=== PATIENT | female | born 1955 | race Caucasian/White ===

== ENCOUNTER 2019-04-02 07:32 | Day surgery (SDC) | payer OTHER, MEDICARE ==
[~2019-04-02 07:32] MED LIST: Lactated Ringers 1,000 ML IV SCH
[2019-04-02] MEDS ORDERED: Lidocaine 2% 5 ML SDV ONE (07:37)
[2019-04-02] MEDS ORDERED: Propofol 200 MG/20 ML SDV ONE (07:37)
[2019-04-02] MEDS ORDERED: fentaNYL 100 MCG/2 ML SDV ONE (07:37)
[2019-04-02] MEDS ORDERED: Levofloxacin/Dextrose 5%-Water 750 MG in Premix Bag 1 BAG IV STA (07:59)
--- NOTE | 2019-04-02 08:07 | PCM.PREANE ---
Preanesthetic Assessment - Anesthesia/Transfusion/Family Hx Anesthesia History: Prior Anesthesia Without Reaction Family History of Anesthesia Reaction: No Transfusion History: No Prior Transfusion(s) Intubation History: Unknown - Review of Systems General: No Symptoms Pulmonary: No Symptoms Cardiovascular: No Symptoms Gastrointestinal: No Symptoms Neurological: No Symptoms Other: Reports: None - Physical Assessment Vital Signs: Last Vital Signs Temp 36.1 C 04/02/19 07:46 Pulse 51 L 04/02/19 07:46 Resp 15 04/02/19 07:46 BP 130/67 04/02/19 07:46 Pulse Ox 98 04/02/19 07:46 Height: 5 ft 5 in Weight: 82.1 kg ASA Class: 2 Mental Status: Alert & Oriented x3 Airway Class: Mallampati = 2 Dentition: Reports: Normal Dentition, Missing Tooth/Teeth (few on the) Thyro-Mental Finger Breadths: 3 Mouth Opening Finger Breadths: 3 ROM/Head Extension: Full Lungs: Clear to Auscultation, Normal Respiratory Effort Cardiovascular: Regular Rate, Regular Rhythm - Allergies Allergies/Adverse Reactions: Allergies Allergy/AdvReac Type Severity Reaction Status Date / Time iodine Allergy Redness Verified 03/30/19 07:19 shellfish derived Allergy Anaphylactic Verified 03/30/19 07:19 Shock - Blood Blood Available: No - Anesthesia Plan Pre-Op Medication Ordered: None - Acknowledgements Anesthesia Type Planned: MAC Pt an Appropriate Candidate for the Planned Anesthesia: Yes Alternatives and Risks of Anesthesia Discussed w Pt/Guardian: Yes Pt/Guardian Understands and Agrees with Anesthesia Plan: Yes PreAnesthesia Questionnaire HEENT History: Reports: Other (See Below) Other HEENT History: wears glasses Cardiovascular History: Reports: None Respiratory History: Reports: None Gastrointestinal History: Reports: Other (See Below) Other Gastrointestinal History: heartburn in the past, none recently Genitourinary History: Reports: None Musculoskeletal History: Reports: Other (See Below) Other Musculoskeletal History: steffen foot pain Neurological History: Reports: MS (very mild symptoms- balance) Psychiatric History: Reports: None Endocrine/Metabolic History: Reports: Diabetes, Type II (recently diagnosed), Obesity/BMI 30+ Hematologic History: Reports: None Immunologic History: Reports: None Oncologic (Cancer) History: Reports: None Dermatologic History: Reports: None - Infectious Disease History Infectious Disease History: Reports: None - Past Surgical History Head Surgeries/Procedures: Reports: None HEENT Surgical History: Reports: None Cardiovascular Surgical History: Reports: None Respiratory Surgical History: Reports: None GI Surgical History: Reports: None Female Surgical History: Reports: Hysterectomy, Tubal Ligation Endocrine Surgical History: Reports: None Neurological Surgical History: Reports: Lumbar Spine Other Neurological Surgeries/Procedures: back surgery x2 Musculoskeletal Surgical History: Reports: Other (See Below) Other Musculoskeletal Surgeries/Procedures:: left foot surgery Oncologic Surgical History: Reports: None Dermatological Surgical History: Reports: None - SUBSTANCE USE Smoking Status *Q: Former Smoker Tobacco Use Within Last Twelve Months: No - HOME MEDS Home Medications: Home Meds Ibuprofen 1 tab PO TID PRN 03/30/19 [History] Oxybutynin Chloride 5 mg PO BID 03/30/19 [History] - CURRENT (IN HOUSE) MEDS Current Meds: Current Medications Lactated Ringer's (Ringers, Lactated) 1,000 mls @ 125 mls/hr IV ASDIRECTED [facility] Last Admin: 04/02/19 07:56 Dose: 125 mls/hr Levofloxacin/Dextrose 750 mg/ (Premix) 150 mls @ 100 mls/hr IV ONETIME STA Stop: 04/02/19 09:28 Discontinued Medications Fentanyl (Sublimaze) Confirm Administered Dose 100 mcg .ROUTE .STK-MED ONE Stop: 04/02/19 07:38 Lactated Ringer's (Ringers, Lactated) 1,000 mls @ 125 mls/hr IV ASDIRECTED [facility] Lidocaine (Xylocaine-Mpf 2%) Confirm Administered Dose 5 ml .ROUTE .STK-MED ONE Stop: 04/02/19 07:38 Propofol (Diprivan 20 Ml) Confirm Administered Dose 400 mg .ROUTE .STK-MED ONE Stop: 04/02/19 07:38
[2019-04-02] MEDS ORDERED: Midazolam 1 MG/ML 2 ML SDV ONE (08:26)
--- NOTE | 2019-04-02 08:56 | PCM.OPNOTE ---
- General Post-Op/Procedure Note Date of Surgery/Procedure: 04/02/19 Operative Procedure(s): egd w bx and attempted colonoscopy Findings: see [id number] Pre Op Diagnosis: scrn colonoscopy and gerd Post-Op Diagnosis: Same Anesthesia Technique: Moderate Sedation Primary Surgeon: Ang Alvarez Pathology: egd bx Complications: None Condition: Good
--- NOTE | 2019-04-02 09:03 | PCM.POSTAN ---
POST ANESTHESIA ASSESSMENT - MENTAL STATUS Mental Status: Alert, Oriented - VITAL SIGNS Vital Signs: Last Vital Signs Temp 97.0 F 04/02/19 07:46 Pulse 56 L 04/02/19 08:56 Resp 12 04/02/19 08:56 BP 121/73 04/02/19 08:56 Pulse Ox 95 04/02/19 08:56 - RESPIRATORY Respiratory Status: Respiratory Rate WNL, Airway Patent, O2 Saturation Stable - CARDIOVASCULAR CV Status: Pulse Rate WNL, Blood Pressure Stable - GASTROINTESTINAL GI Status: No Symptoms - PAIN Pain Score: 0 - POST OP HYDRATION Hydration Status: Adequate & Stable
[2019-04-02 09:44] VITALS: BP 122/68
--- NOTE | 2019-04-02 09:47 | PCM48HPAN ---
Post Anesthesia Note - EVALUATION WITHIN 48HRS OF ANESTHETIC Vital Signs in Normal Range: Yes Patient Participated in Evaluation: Yes Respiratory Function Stable: Yes Airway Patent: Yes Cardiovascular Function Stable: Yes Hydration Status Stable: Yes Pain Control Satisfactory: Yes Nausea and Vomiting Control Satisfactory: Yes Mental Status Recovered: Yes Vital Signs: Last Vital Signs Temp 36.2 C 04/02/19 09:15 Pulse 66 04/02/19 09:15 Resp 14 04/02/19 09:15 BP 122/68 04/02/19 09:15 Pulse Ox 95 04/02/19 09:15 - COMMENTS/OBSERVATIONS Free Text/Narrative:: no anesthesia problems
--- NOTE | 2019-04-02 11:26 | OR ---
SURGEON: Ang Alvarez MD DATE OF PROCEDURE: 04/02/2019 PREOPERATIVE DIAGNOSES: Screening colonoscopy and gastroesophageal reflux disease. POSTOPERATIVE DIAGNOSES: Screening colonoscopy and gastroesophageal reflux disease. PROCEDURES PERFORMED: Esophagogastroduodenoscopy with biopsy and attempted colonoscopy. EGD: The patient was taken to the endoscopy room, and with the SHANK RANDER, Diprivan was administered. A well-lubricated EGD scope was gently inserted through the oropharynx, down the esophagus, passing through the gastroesophageal junction, into the stomach. The mucosa was examined upon the passage. Any etiology will be noted. Once in the stomach, we continued to advance to the distal antrum, passed through the pylorus into the second portion of the duodenum. Again, the mucosa was examined for any abnormality and etiology. The scope was then retrieved back to the stomach and then retroflexed to look at the fundus of the stomach. If a biopsy was indicated, we will biopsy the antrum, body, and gastroesophageal junction. The air will be sucked out while the scope is retrieved to reduce the patient's discomfort. The patient tolerated the procedure well. There were no intraoperative complications. Dr. Alvarez was present through the whole procedure. Prior to surgery, a time-out had been called, the patient identified, procedure identified and antibiotic administered. FINDINGS: EGD findings: 1. The patient is easily sedated with SHANK RANDER and Diprivan, the patient is soundly snoring. 2. Oropharynx and proximal esophagus are free of disease, stricture, inflammation. Distal esophagus at GE junction at 40 shows mild salmon- colored change consistent with mild acid reflux. Stomach rugae are normal in appearance. Antrum is mildly inflamed. Duodenal bulb is mildly inflamed and second portion duodenum is grossly normal in appearance. Retroflexed look at the fundus of stomach, there is no hiatal hernia. Biopsy done at antrum, body, GE junction at 40 and sucked out the gas while scope pulling out. During the whole study, there is no blood, ulcer, bile, or food particle observed. Attempted colonoscopy to 80 cm. The finding of colonoscopy to 80 cm before seeing any transverse colon, note solid stool completely. Opaque solid stool and semi-formed stool blocking the full lumen of the colon. It is unsafe to proceed even despite irrigation. Colonoscopy aborted. During the limited study, there is no diverticulosis, inflammation, stricture, polyp, AV malformation, mass, bleeding observed. There is no external hemorrhoid. PROCEDURE PERFORMED IN DETAIL: The patient was taken to the endoscopy room and placed in the left acute position, left side down and right side up. An EGD was then finished and please see separate dictation for EGD findings and procedure. Then, colonoscopy started. At first inspection, the patient does not have external hemorrhoids and followed with digital examination, there is no palpable mass. Then, a well- lubricated colonoscope was gently inserted into the rectum. Immediately encountered a gush of opaque liquid stool, brown in color. Managed to negotiate around the rectum and going to the sigmoid colon and the left colon. Despite a lot of vegetable and semi-formed stool and opaque liquid stool, with constant irrigation was able to make all the way to the presumably splenic flexure, 80 cm of the colonoscope, and then the whole lumen was blocked by semi-formed stool and liquid stool. At that point, decided it was dangerous to proceed. Despite irrigation and still cannot get a clear picture, the scope was then withdrawn. During the limited examination, there was no diverticulosis, polyp, mass, growth, inflammation, blood, ulceration, AV malformation observed. The patient will need to repeat the colonoscopy in 3 to 6 months. DENA / DEEPA /[id number]
== END 2019-04-02 09:52 | disposition home or self-care (01) ==
LOC: MW.SDS 07:32
PROVIDERS: ATTEND Surgery
DX: Z12.11 Encounter for screening for malignant neoplasm of colon (principal); K21.0 Gastro-esophageal reflux disease with esophagitis; K29.80 Duodenitis without bleeding; K29.70 Gastritis, unspecified, without bleeding; K31.89 Other diseases of stomach and duodenum; E11.9 Type 2 diabetes mellitus without complications; Z91.013 Allergy to seafood; Z91.048 Other nonmedicinal substance allergy status; Z87.891 Personal history of nicotine dependence; Z79.1 Long term (current) use of non-steroidal anti-inflammatories (NSAID)
CPT/HCPCS: 00813; 88305; 88312; J2001; J2250; J2704; J3010; J7120